=== PATIENT | female | born 1960 | race Caucasian/White ===

== ENCOUNTER → 2016-11-13 | Day surgery (SDC) | payer OTHER ==
[~2016-11-13] VITALS: Ht 157.5 cm; Wt 79.1 kg
[~2016-11-13] MED LIST: *RESP: ALBUTEROL 2.5 MG/3 ML NEB (PRN) PERIprocedural Use ONLY NEB ONE; ACETAMINOPHEN 1000 MG/100 ML 0 ML IV ONE; ACETAMINOPHEN 1000 MG/100 ML 100 ML IV SCH; ALPR.5 PO; ATOR40TA16 PO; BUPIVACAINE/EPINEPHRINE 0.25% 50 ML VIAL ONE; CALC1TAB87 PO; CHLORHEXIDINE GLUCONATE 2 % 1 PACK (2 CLOTHS) TOPICAL PRN; DEXAMETHASONE SOD PHOS 4 MG/ML VIAL IV ONE; DO NOT ADM ANY ANTICOAGULANT DRUGS PRN; GABA600T PO; HYDROmorphone HCL PF 2 MG/ML VIAL ONE; INSULIN HUMAN REGULAR 1,000 UNITS/10 ML VIAL SQ PRN; LACTATED RINGER'S 1000 ML INJ 1,000 ML IV ONE; LACTATED RINGER'S 1000 ML IV PRN; LEVO88TA2 PO; LIDOCAINE HCL 1% PF 5 ML AMPULE OTHER ONE; METOPROLOL TARTRATE 25 MG TAB PO PRN; MIDAZOLAM HCL 2 MG/2 ML VIAL IV ONE; MORPHINE SULFATE 4 MG/ML INJ IV PRN; ONDANSETRON HCL 4 MG/2 ML VIAL IV PRN; ONDANSETRON HCL 4 MG/2 ML VIAL IV PUSH ONE; PANT40TA3 PO; POVIDONE IODINE 5% (ANTISEPSIS KIT) 4 APPLICATIONS EACH NARE PRN; PROPOFOL 200 MG/20 ML AMP IV ONE; ROCURONIUM INJ 50 MG/5 ML SYRINGE IV PUSH ONE; SODIUM CHLORID 0.9% 500 ML IV PRN; SUGAMMADEX SODIUM 200 MG/2 ML VIAL IV PUSH ONE; VARE1PAK3 PO; VITA1000 PO; ceFAZolin 2 GM PREMIX 50 ML IV SCH; ePHEDrine/NS 25 MG/5 ML SYR IV ONE; metroNIDAZOLE 500 MG INJ 100 ML IV SCH; oxyCODONE/ACETAMINOPHEN 5 MG/325 MG TAB PO PRN
--- NOTE | 2016-11-13 08:48 | PD.OP ---
cc: Jose E Carias MD; Eduardo Villarreal MD Operative Report Date of Surgery: Nov 13, 2016 Preoperative Diagnosis: (1) Symptomatic cholelithiasis (2) Hepatic steatosis Postoperative Diagnosis: (1) Hepatic steatosis (2) Symptomatic cholelithiasis Procedure: Laparoscopic cholecystectomy Laparoscopic liver biopsy 3 Anesthesia: GILMA Surgeon: Jose E Carias [employer] Teacher(s): Milagros LIMA Operation and Findings: Complications: None apparent EBL: 25 cc Operative findings: The gallbladder was distended and inflamed with chronic and some acute inflammation. There was a very large gallstone present. The liver was enlarged and appeared fatty. Procedure in detail: The patient was taken to the operating room and placed in the supine position. General endotracheal anesthesia was induced. The abdomen was prepped and draped in usual sterile fashion and a surgical timeout was performed to verify correct patient procedure and site. Appropriate perioperative antibiotics were administered. Local anesthetic was injected in the skin and subcutaneous tissue superior to the umbilicus and a 5 mm incision performed. The abdomen was entered using the Optiview 5 mm trocar with direct laparoscopic visualization. The abdomen was then insufflated to 15 mmHg with CO2 gas which the patient tolerated well. Next a 12 mm port was placed in the epigastrium and two 5 mm ports in the right upper quadrant and right lateral abdomen. The patient was placed in reverse Trendelenburg position and turned slightly to the left. Attention was turned to the right upper quadrant and the dome of the gallbladder was grasped and retracted cephalad. The gallbladder was enlarged and distended with evidence of chronic and acute inflammation. There was a large gallstone in the infundibulum. The infundibulum was retracted laterally to expose Calot's triangle. Blunt dissection and judicious use of electrocautery was used to expose the cystic duct and the cystic artery directly entering the gallbladder. Two clips were placed proximally on each of these structures and one distally and they were transected. The gallbladder was then removed from the liver bed using electrocautery. Hemostasis was achieved. There was some bile staining in the gallbladder fossa but no evidence of leakage. The gallbladder was then removed from the abdomen using an Endo Catch bag. The clips were in place on the cystic duct and cystic artery stumps with no bleeding or bile leakage. The right upper quadrant was irrigated. The Yovani-Cut liver biopsy needle was used to obtain 3 liver biopsies which were sent as permanent specimens. The liver did appear enlarged and fatty. Hemostasis was achieved at the site of the biopsies. At this point, the abdomen was allowed to desufflate and trochars were removed. The fascia at the 12 mm port site was closed with 0 Vicryl suture. Skin was closed with subcuticular 4-0 Monocryl as well as Dermabond. The patient tolerated the procedure well and was extubated and taken to PACU in stable condition. All sponge and instrument counts were correct. Jose E Carias MD Nov 13, 2016 08:48
[2016-11-13 10:07] VITALS: BP 152/85; PULSE 94; RESP 18; TEMP 97.4; O2SAT 94
== END | disposition home or self-care (01) ==
LOC: HSDC 05:31
PROVIDERS: ATTEND Surgery
DX: K80.20 Calculus of gallbladder without cholecystitis without obstruction (principal); K75.81 Nonalcoholic steatohepatitis (NASH)
CPT/HCPCS: 00790; 47379; 47562; 88304; 88307; 88313; 94664; J0131; J0690; J1100; J1170; J2250; J2405; J3010; J7120; J7613